=== PATIENT | male | born 1975 | race Caucasian/White ===

== ENCOUNTER 2017-07-17 10:47 | Day surgery (SDC) | payer MEDICAID ==
[2017-07-01 11:15] VITALS: BMI 25.5
[2017-07-17] MEDS ORDERED: Bupivacaine-Epi 0.25%-1:200,000 PF Inj ONE (12:32)
[2017-07-17] MEDS ORDERED: Lidocaine 1% Inj (20ml) ONE (12:32)
[2017-07-17] MEDS ORDERED: Lactated Ringer's 1,000 ML IV ONE (12:42)
[2017-07-17] MEDS ORDERED: ceFAZolin IV 1 gm in Dextrose 1 GM/50 ML BAG IVPB ONE (12:47)
[2017-07-17] MEDS ORDERED: Midazolam 2 MG/2 ML VIAL ONE (12:49)
[2017-07-17] MEDS ORDERED: Propofol 10 mg/ml Inj (20 ML) ONE ×2 (12:49→12:55)
[2017-07-17] MEDS ORDERED: HYDROmorphone 0.5 mg/0.5 ml ISec IVP PRN (13:32)
[2017-07-17] MEDS ORDERED: Oxycodone/Acetaminophen 5/325 mg Tab PO ONE (14:28)
[2017-07-17 15:11] VITALS: O2SAT 98
[2017-07-17 15:48] VITALS: RESP 15; TEMP 97.8
[2017-07-17 16:04] VITALS: BP 123/77; PULSE 82
--- NOTE | 2017-07-17 16:29 | PCM.SURG1 ---
Surgeon's Initial Post Op Note - Surgeon's Notes Surgeon: Elizabeth Director Television: [id number] Type of Anesthesia: General LMA, Local Pre-Operative Diagnosis: L elbow foreign body Operative Findings: L elbow venous clot Post-Operative Diagnosis: L elbow thrombophlebitis Operation Performed: L elbow resection of superficial vein with clot Specimen/Specimens Removed: superficial vein with clot, Culture Estimated Blood Loss: EBL {In ML}: 5 Blood Products Given: N/A Drains Used: No Drains Post-Op Condition: Good Date of Surgery/Procedure: 07/17/17 Time of Surgery/Procedure: 12:00
--- NOTE | 2017-07-18 09:02 | RAD ---
PROCEDURE: Intraoperative fluoroscopy HISTORY: LT. ELBOW FOREIGN BODY COMPARISON: Not available TECHNIQUE: Intraoperative fluoroscopy was provided for foreign body removal. Total time of fluoroscopy was 8.6 seconds. FINDINGS: Several fluoroscopic spot films are submitted. Films are on file for review. IMPRESSION: Fluoroscopy provided.
--- NOTE | 2017-07-19 06:20 | OP ---
PROCEDURE DATE: 07/17/2017 PREOPERATIVE DIAGNOSIS: Left elbow foreign body, possible broken needle, possible clot. POSTOPERATIVE DIAGNOSES: 1. Left elbow thrombophlebitis. 2. Left elbow organized calcified clot. PROCEDURES DONE: 1. Left elbow excision of superficial vein. 2. Left elbow excision of organized calcified blood clot. 3. Intraoperative fluoroscopic confirmation. SURGEON: Anjel Johnson MD MIRROR PAINTER: Martin Adan, PGY-4, resident. TYPE OF ANESTHESIA: General anesthesia with local anesthesia. ESTIMATED BLOOD LOSS: Around 5 mL. DRAIN: None. PATHOLOGY: 1. The clot was sent for the pathology. 2. Part of the superficial vein was sent for the pathology. COMPLICATIONS: None. INTRAOPERATIVE FINDINGS: The patient had an organized clot of the left superficial vein and the patient also had a thrombosed left elbow superficial vein. DESCRIPTION OF PROCEDURE: On intraoperative step, this is a 42-year-old male who was diagnosed with possible left elbow superficial foreign body, possible broken needle, possible organized clot, and the patient was consented for excision of the foreign body and the possible clot. The patient was brought to the OR, placed supine on the operating table. After induction of the anesthesia, the left elbow was prepped and draped in the usual sterile fashion. Intraoperative fluoroscopic confirmation was done. There was no foreign body identified and incision was made on top of the palpable foreign body. After identification of the palpable presumed calcified clot and after incising the skin and subcutaneous tissue, the thrombosed vein was identified and a blood clot was evacuated, and it was sent to the table for the pathology. Now the thrombosed vein was ligated and a part of the vein was resected, and it was sent to the table for the pathology. There was proper hemostasis. Then another fluoroscopic confirmation was done, and again, there was no foreign body identified and the wound was irrigated and closed in 2 layers, subcu with 2-0 Vicryl, skin with 4-0 Monocryl, and dry sterile dressing was applied. The patient tolerated the procedure well. Count of the instrument and gauze was correct. There were no apparent complications. The patient was extubated in the OR and sent to the Postanesthesia Care Unit in stable condition. Anjel Johnson MD [facility] # [id number]
== END 2017-07-17 16:03 | disposition home or self-care (01) ==
LOC: C.SDS 10:47
PROVIDERS: ATTEND Surgery Surgical Critical Care
DX: I80.8 Phlebitis and thrombophlebitis of other sites (principal); I82.612 Acute embolism and thrombosis of superficial veins of left upper extremity; I10 Essential (primary) hypertension
CPT/HCPCS: 37799; 76000; 88304; 88305; FLUOR; J0690; J2250; J2704; J3010; J7120